=== PATIENT | female | born 1975 | race Caucasian/White ===

== ENCOUNTER 2017-10-22 09:46 | Day surgery (SDC) | payer OTHER ==
[~2017-10-22 09:46] MED LIST: CEFTRIAXONE 1 GM/50 ML (PMX) 50 ML IVPB; FENTAnyl 50 MCG/ML VIAL; MIDAZOLAM 1 MG/ML 2 ML INJ; PROPOFOL 20 ML; ROCURONIUM 50 MG INJ
[2017-10-22] MEDS ORDERED: FENTAnyl 50 MCG/ML VIAL IV ×3 (11:00)
[2017-10-22] MEDS ORDERED: HYDROmorphONE (0.2 MG/ML) 10ML SYG IV ×3 (11:00)
[2017-10-22] MEDS ORDERED: LABETALOL HCL 20MG INJ IV (11:00)
[2017-10-22] MEDS ORDERED: EPHEDrine SULFATE 50 MG/5 ML SYG IV (11:00)
[2017-10-22] MEDS ORDERED: DIPHENHYDRAMINE 50 MG INJ IV (11:00)
[2017-10-22] MEDS ORDERED: MEPERIDINE 25 MG INJ IV (11:00)
[2017-10-22] MEDS ORDERED: METOCLOPRAMIDE 10 MG INJ IV (11:00)
[2017-10-22] MEDS ORDERED: hydrALAzine 20 MG INJ IV (11:00)
[2017-10-22] MEDS ORDERED: ONDANSETRON 4 MG INJ IV (11:00)
[2017-10-22] MEDS ORDERED: OXYCODONE/ACETAMINOPHEN (5/325) TAB PO (11:00)
[2017-10-22] MEDS ORDERED: KETOROLAC 30 MG INJ (13:03)
[2017-10-22] MEDS ORDERED: DEXAMETHASONE 4 MG/ML 1 ML INJ (13:03)
[2017-10-22] MEDS ORDERED: METOCLOPRAMIDE 10 MG INJ (13:03)
[2017-10-22] MEDS ORDERED: ONDANSETRON 4 MG INJ (13:03)
[2017-10-22] MEDS ORDERED: HYDROCODONE/APAP (5/325) TAB PO (14:00)
== END 2017-10-22 15:40 | disposition home or self-care (01) ==
LOC: SDS 09:46
DX: N20.2 Calculus of kidney with calculus of ureter (principal); I10 Essential (primary) hypertension
CPT/HCPCS: 52356; 74480; 87086; 88300